=== PATIENT | male | born 1985 | race Caucasian/White ===

== ENCOUNTER 2024-02-17 22:58 | Outpatient (CLI) | payer OTHER, MEDICAID, SELFPAY | END 2024-02-17 22:59 | disposition home or self-care (01) | LOC: AMB 02-19 01:11 | PROVIDERS: Visit Provider Family Medicine | DX: S09.90XA Unspecified injury of head, initial encounter (principal); V47.3XXA Unspecified car occupant injured in collision with fixed or stationary object in nontraffic accident, initial encounter; Y92.410 Unspecified street and highway as the place of occurrence of the external cause | CPT/HCPCS: A0425; A0429 ==

== ENCOUNTER 2024-02-17 23:32 | Emergency (ER) | payer OTHER, MEDICAID, SELFPAY ==
[2024-02-17 23:32] VITALS: BP 144/95; PULSE 68; RESP 18; TEMP 36.7; O2SAT 99; BMI 34.4
[2024-02-17 23:40] VITALS: O2SAT 99
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
[2024-02-17 23:54] LABS: Basophils Absolute Auto 0.02 K/uL (0.00-0.30); Basophils Percent Auto 0.2 % (0.0-3.0); Eosinophils Percent Auto 2.4 % (0.0-7.0); Hematocrit 43.4 % (37.0-53.0); Hemoglobin* 14.4 gm/dL (13.5-17.5); Immature Granulocytes Abs Auto 0.02 K/uL (0.00-0.30); Immature Granulocytes Pct Auto 0.2 %; Lymphocytes Absolute Auto 3.14 K/uL (0.90-2.90); Mean Corpuscular HGB Conc 33 gm/dL (32-36); Mean Corpuscular Hemoglobin 31 pg (26-34); Mean Corpuscular Volume 94 fL (80-100); Monocytes Percent Auto 9.1 % (0.0-11.0); Neutrophils Absolute Auto 4.14 K/uL (1.7-7.0); Neutrophils Percent Auto 50.1 % (42.0-72.0); Platelet Count* 187 K/uL (140-440); RDW Coefficient of Variation % 12.5 % (11.5-15.5); Red Blood Count 4.63 m/uL (4.30-5.90); White Blood Count* 8.27 K/uL (4.50-11.00)
[2024-02-18] LABS: Slide Review Reflex No
[2024-02-18] MEDS: 0.9 % SODIUM CHLORIDE 500 ML 500 ML 1000 ML IV (00:05)
[2024-02-18 00:14] LABS: Chloride* 101 mmol/L (96-114); Potassium* 3.2 mmol/L (3.6-5.1); Sodium* 140 mmol/L (135-149)
[2024-02-18 00:17] LABS: Anion Gap 16 mEq/L (7-15); Blood Urea Nitrogen* 14 mg/dL (5-24); Carbon Dioxide* 23 mmol/L (20-32); Creatinine* 0.9 mg/dL (0.5-1.5); Estimated Glomerular Filt Rate 114 ml/min
[2024-02-18 00:18] LABS: Calcium* 9.2 mg/dL (8.4-10.6); Glucose* 108 mg/dL (60-115)
[2024-02-18 00:27] LABS: Ethanol* 0.32 % (0.01-0.03)
[2024-02-18 00:45] VITALS: BP 139/81; PULSE 78; RESP 16; TEMP 36.7; O2SAT 99
[2024-02-18 01:00] VITALS: BP 124/100; PULSE 76; RESP 16; TEMP 36.7; O2SAT 98
[2024-02-18 01:04] LABS: Appearance Urine Clear (Clear); Bilirubin Urine Negative (Negative); Blood Urine Negative (Negative); Color Urine Yellow (Yellow); Glucose Urine Negative (Negative); Ketones Urine Negative (Negative); Leukocyte Esterase Urine Negative (Negative); Nitrite Urine Negative (Negative); Protein Urine Negative (Negative); Specific Gravity Urine <= 1.005 (1.000-1.030); Urobilinogen Urine 0.2 (0.2-1.0)
[2024-02-18 01:05] LABS: RBC Urine 0-2 (0-2); Squamous Epithelial Cell Urine Few (None-Few); WBC Urine 0-2 (0-5)
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
== END 2024-02-18 01:28 | disposition home or self-care (01) ==
PROVIDERS: Emergency Provider Family Medicine
DX: S01.01XA Laceration without foreign body of scalp, initial encounter (principal); F10.129 Alcohol abuse with intoxication, unspecified; V49.9XXA Car occupant (driver) (passenger) injured in unspecified traffic accident, initial encounter
CPT/HCPCS: 10160; 36415; 70450; 71260; 72125; 74177; 80048; 81001; 82077; 85025; 93005; 94761; 99284; 99291; G0390; J7030; Q9967